=== PATIENT | male | born 1995 | race Caucasian/White ===

== ENCOUNTER 2020-10-01 12:12 | Outpatient (REF) | payer OTHER, SELFPAY | END 2020-10-01 12:13 | disposition home or self-care (01) | LOC: HO.LAB 12:12 | PROVIDERS: Visit Provider Internal Medicine | DX: Z20.822 Contact with and (suspected) exposure to COVID-19 (principal) | CPT/HCPCS: 36415; C9803; U0003 ==

== ENCOUNTER 2021-03-08 00:08 | Emergency (ER) | payer OTHER, SELFPAY ==
[2021-03-08 00:30] VITALS: BP 110/65; PULSE 79; RESP 16; TEMP 36.5; O2SAT 93; BMI 22.5
--- NOTE | 2021-03-08 01:19 | ED.MEDCLEAR ---
HPI - Medical Clearance General Chief complaint: Medical Clearance Stated complaint: detox sent over to ED Time Seen by Provider: 03/08/21 01:19 Source: patient Mode of arrival: ambulatory History of Present Illness HPI Narrative: 25-year-old male currently dependent on heroin presents after being seen at [facility] where he was asking to be placed in a detox program but there were some concerns regarding redness at an injection site on the left AC. Patient denies any fevers, chills. He denies any nausea, vomiting, abdominal pain currently. Related Information Allergies Allergy/AdvReac Type Severity Reaction Status Date / Time No Known Allergies Allergy Unverified 06/05/20 16:29 [No Known Allergies*] Review of Systems Review of Systems: Pertinent positives and negatives as stated in HPI 10 point review of systems is otherwise negative. PMFSH Past Medical History Source: nursing notes reviewed Medical History Abscess IVDU (intravenous drug user) Social History Social History Advance Directives: No Advance Directives Information Provided: No Physical Exam Vital Signs: Vital Signs: Last Vital Signs Temp 97.7 F 03/08/21 00:30 Pulse 79 03/08/21 00:30 Resp 16 03/08/21 00:30 BP 110/65 03/08/21 00:30 Pulse Ox 93 03/08/21 00:30 Body Mass Index 22.5 VITAL SIGNS: Reviewed. GENERAL: Well developed, well nourished, in no acute distress. HEAD: Normocephalic/atraumatic EYES: PERRLA, EOMI OROPHARYNX: no oral lesions noted, posterior pharynx clear LUNGS: Normal breath sounds. No adventitious sounds or accessory muscle use. SpO2<93> CARDIOVASCULAR: Regular rate and rhythm without noted murmurs ABDOMEN: Soft, non-tender, non-distended with bowel sounds. LEFT AC: SMALL ERYTHEMATOUS AREA ROUND INJECTION SITE WITHOUT FLUCTUANCE NEUROLOGIC: Alert and oriented x 4. Course Course Course Narrative: THIS IS A 25-YEAR-OLD MALE WITH HISTORY AND CLINICAL PRESENTATION CONSISTENT WITH HEROIN DEPENDENCY AND SEEKING DETOX. AFTER EXAMINATION OF PATIENT'S INJECTION SITES THERE IS NO EVIDENCE OF ABSCESS THAT ARE AVAILABLE FOR DRAINAGE. HE WILL BE DISCHARGED IN STABLE CONDITION TO PURSUE DETOX AT [facility]. Discharge Plan Discharge Clinical Impression: Heroin dependence Patient Disposition: Home, Self-Care Additional Instructions: Recommend continuing to pursue detox at [facility]. Return to the ER for any acute worsening of symptoms. Referrals: Physician,None [Primary Care Provider] - 2 days
== END 2021-03-08 06:09 | disposition home or self-care (01) ==
PROVIDERS: Emergency Provider Student in an Organized Health Care Education/Training Program
DX: F11.20 Opioid dependence, uncomplicated (principal)
CPT/HCPCS: 99283

== ENCOUNTER 2021-06-23 17:05 | Emergency (ER) | payer OTHER, SELFPAY ==
[2021-06-23 17:48] VITALS: BP 129/69; PULSE 82; RESP 18; TEMP 36.8; O2SAT 98; BMI 24.3
--- NOTE | 2021-06-23 19:27 | ED.EXTPRO ---
HPI - Extremity Problem General Chief complaint: Extremity Injury, Upper Stated complaint: bilat wrist pain Time Seen by Provider: 06/23/21 19:24 Source: patient Mode of arrival: ambulatory Limitations: no limitations History of Present Illness HPI Narrative: 26-year-old male came in for evaluation of bilateral wrist pain for 2 weeks. 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 Patient declined any direct trauma to any of his wrist. No fever, no chills. Related Data Allergies Allergy/AdvReac Type Severity Reaction Status Date / Time No Known Allergies Allergy Verified 06/23/21 17:48 [No Known Allergies*] Review of Systems Review of Systems: All other systems are reviewed and are negative Constitutional: Reports as per HPI and Reports no additional constitutional complaints Eyes: Reports as per HPI and Reports no additional eye complaints Reports system reviewed and no additional complaints, except as documented Cardiovascular: Reports as per HPI and Reports no additional cardiovascular complaints Respiratory: Reports as per HPI and Reports no additional respiratory complaints Gastrointestinal: Reports as per HPI and Reports no additional gastrointestinal complaints Genitourinary: Reports no additional female genitourinary complaints Musculoskeletal: Reports no additional musculoskeletal complaints Skin/Breast: Reports system reviewed and no additional complaints, except as docu Psychiatric: Reports no additional psychiatric complaints Endocrine: Reports no additional endocrine complaints Hematologic/Lymphatic: Reports no additional hematologic/lymphatic complaints Allergic/Immunologic: Reports no additional allergic/immunologic complaints Reports system reviewed and no additional complaints, except as documented and Reports Abnormal speech present [facility] Past Medical History Medical History Abscess IVDU (intravenous drug user) Social History Social History Advance Directives: No Advance Directives Information Provided: Yes Physical Exam Vital Signs: Vital Signs: Last Vital Signs Temp 98.3 F 06/23/21 17:48 Pulse 82 06/23/21 17:48 Resp 18 06/23/21 17:48 BP 129/69 06/23/21 17:48 Pulse Ox 98 06/23/21 17:48 Body Mass Index 24.3 Vital signs have been reviewed as appeared to be correct. Blood pressure normal. Heart rate normal. Respiration rate normal. Temperature normal. Oxygen saturation normal. Appearance: Alert. Oriented X3. No acute distress. Head: Normal external exam. Normocephalic. Atraumatic. No Castaneda signs noted. No raccoon eyes noted Eyes: PERRLA. EOMI. Conjunctiva and sclera normal. Eyelids normal. ENT: TM's Normal. Pharynx normal. Uvula midline. Moist mucous membranes. No trismus noted. No drooling noted. No muffled voice noted. Neck: Normal inspection. Neck supple. FROM. No adenopathy. Thyroid Normal. No meningeal signs. No neck mass noted. CVS: Normal heart rate and rhythm. Heart sound normal. No murmurs noted. Pulses normal throughout. Respiratory: No respiratory distress. Painless inspiration. Breath sounds normal. No wheezes/rales/rhonchi noted. Chest nontender. No accessory muscle usage noted or decreased air movement noted. Abdomen: Soft and nontender. Bowel sounds normal in all 4 quadrants. No distention noted. No organomegaly noted. No visible injury noted. Back: No CVA tenderness. Full range of motion noted. Skin: Skin warm and dry. Normal skin color. Normal skin turgor. No rashes/lesions/lacerations noted. Extremities: When hyperextend bilateral wrist was tapping on the median nerve under the shooting electricity to both hands. Neuro: Oriented X 3. Cranial nerve exam: II-XII are grossly intact No motor deficit. No sensory deficit. Reflexes normal. Course Course Course Narrative: Assessment and plan. 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 Patient was instructed to rest using a wrist brace, and follow up with Ortho. Discharge Plan Discharge Clinical Impression: Carpal tunnel syndrome Qualifiers: Laterality: bilateral Qualified Code(s): G56.03 - Carpal tunnel syndrome, bilateral upper limbs Patient Disposition: Home, Self-Care Instructions: Carpal Tunnel Surgery (DC) Referrals: Breanne Moncada MD [Physician] - 2 days
== END 2021-06-23 19:41 | disposition home or self-care (01) ==
PROVIDERS: Emergency Provider Emergency Medicine
DX: G56.03 Carpal tunnel syndrome, bilateral upper limbs (principal); M25.532 Pain in left wrist; M25.531 Pain in right wrist
CPT/HCPCS: 99282; 99283; 99284

== ENCOUNTER 2021-07-14 15:51 | Outpatient (REF) | payer OTHER, SELFPAY | END 2021-07-14 15:52 | disposition home or self-care (01) | LOC: HO.LAB 15:51 | PROVIDERS: Visit Provider Internal Medicine | DX: Z20.822 Contact with and (suspected) exposure to COVID-19 (principal) | CPT/HCPCS: C9803; U0003; U0005 ==